=== PATIENT | male | born 1975 | race Two or more races ===

== ENCOUNTER 2020-05-01 19:24 | Inpatient (IN) | payer OTHER ==
[~2020-05-01] VITALS: Ht 177.8 cm; Wt 100.4 kg
[2020-05-01] MEDS ORDERED: OMNIPAQUE 350 MG/ML, 100ML BOTTLE ONE (19:30)
[2020-05-01 19:52] LABS: BASOPHILS % (AUTO) 1 % (0-1); EOSINOPHILS % (AUTO) 3 % (1-7); LYMPHOCYTES % (AUTO) 41 % (22-44); MEAN CORPUSCULAR HEMOGLOBIN 30.1 pg (27.5-34.5); MEAN CORPUSCULAR HGB CONC 33.8 g/dL (33.2-36.2); MEAN PLATELET VOLUME 9.9 fL (7.4-10.4); MONOCYTES % (AUTO) 9 % (2-9); NEUTROPHILS % (AUTO) 47 % (42-75); PLATELET COUNT 218 x10^3/uL (130-400); RED BLOOD COUNT 5.73 x10^6/uL (4.38-5.82); RED CELL DISTRIBUTION WIDTH 13.6 % (9.4-14.8)
[2020-05-01 20:00] LABS: INTERNATIONAL NORMALIZED RATIO 1.12 (0.93-1.1); MD NO; PROTHROMBIN TIME 11.9 Seconds (9.6-11.5)
--- NOTE | 2020-05-01 20:25 | NUR ---
PT BIB [facility] WITH C/O RIGHT FACE WEAKNESS SINCE 1744PM, PT A AND O X4 IN NAD, TALKATIVE WITH C/O BILAT CHEECK SENSITIVITY NO OTHER DEFICITS NOTED AT THIS TIME
--- NOTE | 2020-05-01 20:27 | NUR ---
NEURO ON TELE ROBOT PREFORMING ASSESSMENT AT THIS TIME WITH A CRYOCOM TRAVEL PT
--- NOTE | 2020-05-01 20:28 | NUR ---
DR FROST AT BEDSIDE NO TPA TO BE ORDERED
--- NOTE | 2020-05-01 20:58 | NUR ---
ZITA COMMUNICATION ENGINEER AT BEDSIDE FOR STAFF TO USE
--- NOTE | 2020-05-01 20:58 | NUR ---
REPORT FROM JEREMY YU
[2020-05-01] MEDS ORDERED: SODIUM CHLORIDE FLUSH 10ML SYR IVF PRN (21:30)
[2020-05-01] MEDS: PLEASE ENTER ALLERGIES MC SCH (22:00)
--- NOTE | 2020-05-01 22:00 | NUR ---
PT RESTING, NO NEEDS AT THIS TIME. AT BEDSIDE
--- NOTE | 2020-05-01 23:00 | NUR ---
REPORT GIVEN TO RACHEAL LUNA
[2020-05-01 23:38] VITALS: BP 132/82
[2020-05-02 00:03] VITALS: BP 132/82
[2020-05-02] MEDS ORDERED: TEMAZEPAM 15 MG CAPSULE PO PRN (01:30)
[2020-05-02] MEDS ORDERED: DOCUSATE 100 MG CAPSULE PO PRN (01:30)
[2020-05-02] MEDS ORDERED: HEPARIN 5,000 UNITS/ML, 1ML SQ SCH (01:30)
[2020-05-02] MEDS ORDERED: ACETAMINOPHEN 650 MG/20.3 ML UDC PO PRN (01:30)
[2020-05-02 05:26] LABS: CHOL/HDL RATIO 5.8; LDL/HDL RATIO 3.9 (0.5-3.0)
[2020-05-02] MEDS: PLEASE ENTER ALLERGIES MC SCH ×3 (05:48→21:23)
[2020-05-02] MEDS: ASPIRIN 81 MG TABLET CHEW PO/NG SCH (05:48)
[2020-05-02] MEDS: ATORVASTATIN 80 MG TABLET PO SCH ×2 (08:00→20:44)
[2020-05-02 08:05] VITALS: BP 112/73
[2020-05-02] MEDS: ENOXAPARIN 40 MG/0.4 ML SQ SCH (08:08)
[2020-05-02 13:08] VITALS: BP 115/79
[2020-05-02 19:40] VITALS: BP 108/70
[2020-05-03 01:12] VITALS: BP 99/70
[2020-05-03 05:54] LABS: ANION GAP 6 mmol/L (5-15); CALCIUM 8.9 mg/dL (8.5-10.1); CHLORIDE 106 mmol/L (98-107)
[2020-05-03] MEDS: PLEASE ENTER ALLERGIES MC SCH (06:00)
[2020-05-03] MEDS: ASPIRIN 81 MG TABLET CHEW PO/NG SCH (06:06)
[2020-05-03] MEDS ORDERED: ATOR20TA37 PO (07:07)
[2020-05-03] MEDS ORDERED: ASPI-515 PO/NG (07:07)
[2020-05-03] MEDS: ENOXAPARIN 40 MG/0.4 ML SQ SCH (08:08)
[2020-05-03 08:45] VITALS: BP 107/75
== END 2020-05-03 09:30 | disposition home or self-care (01) | DRG 66 ==
LOC: ED 21:14 → EDIP 21:41 → 5SO 23:26 → DCLOUNGE 05-03 09:16
PROVIDERS: ADMIT Internal Medicine; ATTEND Internal Medicine Infectious Disease
DX: I63.9 Cerebral infarction, unspecified (principal); R29.701 NIHSS score 1; F17.210 Nicotine dependence, cigarettes, uncomplicated; Z79.899 Other long term (current) drug therapy; Z79.82 Long term (current) use of aspirin; Z79.891 Long term (current) use of opiate analgesic
CPT/HCPCS: 36415; 70450; 70496; 70498; 70551; 80047; 80048; 80061; 83036; 84443; 85025; 85610; 85730; 93005; 93306; 96372; 99285; G0378; J1644; J1650; Q9967; 92523-GN

== ENCOUNTER 2020-05-07 02:26 | Emergency (ER) | payer OTHER ==
[~2020-05-07] VITALS: Ht 180.3 cm; Wt 95.0 kg
[~2020-05-07 02:26] MED LIST: ASPI-515 PO/NG; ATOR20TA37 PO
[2020-05-07] MEDS ORDERED: PROCHLORPERAZINE 5 MG/ML, 2ML IVPush ONE (02:30)
[2020-05-07] MEDS ORDERED: DIPHENHYDRAMINE 50 MG/ML, 1ML IVPush ONE (02:30)
[2020-05-07] MEDS ORDERED: SODIUM CHLORIDE FLUSH 10ML SYR IVF ONE (02:30)
[2020-05-07] MEDS ORDERED: KETOROLAC 30 MG/1 ML IVPush ONE (02:30)
[2020-05-07] MEDS ORDERED: SODIUM CHLORIDE 0.9% 1,000ML IVBOLUS ONE (02:30)
--- NOTE | 2020-05-07 02:38 | NUR ---
Pt BIB[facility] with complaints of being dizzy. Patient started new medication today. Was here on Saturday and was told her had a TIA. Patient stated that the dizzy spell was worse tonight then on Saturday. Per EMS patient ambulated witha steady gait [facility] Patient denies any pain. VSS. Placed on night monitor. Call light within reach
[2020-05-07] MEDS ORDERED: PROCHLORPERAZINE 5 MG/ML, 2ML ONE (02:40)
[2020-05-07] MEDS ORDERED: DIPHENHYDRAMINE 50 MG/ML, 1ML ONE (02:41)
[2020-05-07] MEDS ORDERED: KETOROLAC 30 MG/1 ML ONE (02:41)
[2020-05-07 02:51] LABS: BASOPHILS % (AUTO) 1 % (0-1); EOSINOPHILS % (AUTO) 4 % (1-7); LYMPHOCYTES % (AUTO) 35 % (22-44); MEAN CORPUSCULAR HEMOGLOBIN 29.9 pg (27.5-34.5); MEAN CORPUSCULAR HGB CONC 34.3 g/dL (33.2-36.2); MEAN PLATELET VOLUME 9.4 fL (7.4-10.4); MONOCYTES % (AUTO) 9 % (2-9); NEUTROPHILS % (AUTO) 52 % (42-75); PLATELET COUNT 197 x10^3/uL (130-400)
[2020-05-07 02:52] LABS: MD NO
[2020-05-07 02:59] LABS: ALANINE AMINOTRANSFERASE 38 U/L (12-78); ALBUMIN 3.6 g/dL (3.4-5.0); ANION GAP 6 mmol/L (5-15); CALCIUM 8.6 mg/dL (8.5-10.1); CHLORIDE 106 mmol/L (98-107); CREATININE 1.13 mg/dL (0.7-1.3)
[2020-05-07 03:01] LABS: ALKALINE PHOSPHATASE 97 U/L (45-117); BILIRUBIN,TOTAL 0.4 mg/dL (0.2-1.0); TOTAL PROTEIN 7.5 g/dL (6.4-8.2)
[2020-05-07 04:28] VITALS: BP 105/74
== END 2020-05-07 04:41 | disposition home or self-care (01) ==
LOC: ED 03:20
DX: R42 Dizziness and giddiness (principal); R51.9 Headache, unspecified; R94.31 Abnormal electrocardiogram [ECG] [EKG]; F17.210 Nicotine dependence, cigarettes, uncomplicated
CPT/HCPCS: 36415; 70450; 80053; 80320; 85025; 93005; 96361; 96374; 96375; 99285; J0780; J1200; J1885; J7030; G0480

== ENCOUNTER 2020-05-12 02:33 | Emergency (ER) | payer SELFPAY ==
[~2020-05-12] VITALS: Ht 172.7 cm; Wt 97.4 kg
[2020-05-12] MEDS ORDERED: MECLIZINE CHEWABLE 25 MG TAB ONE (03:09)
[2020-05-12 03:13] LABS: BASOPHILS % (AUTO) 1 % (0-1); EOSINOPHILS % (AUTO) 3 % (1-7); LYMPHOCYTES % (AUTO) 33 % (22-44); MEAN CORPUSCULAR HEMOGLOBIN 31.1 pg (27.5-34.5); MEAN PLATELET VOLUME 9.7 fL (7.4-10.4); MONOCYTES % (AUTO) 8 % (2-9); NEUTROPHILS % (AUTO) 56 % (42-75); PLATELET COUNT 208 x10^3/uL (130-400); RED BLOOD COUNT 5.56 x10^6/uL (4.38-5.82); RED CELL DISTRIBUTION WIDTH 12.9 % (9.4-14.8)
[2020-05-12 03:17] LABS: MD NO
[2020-05-12 03:21] LABS: ALBUMIN 3.9 g/dL (3.4-5.0); ANION GAP 5 mmol/L (5-15); CALCIUM 8.8 mg/dL (8.5-10.1); CHLORIDE 106 mmol/L (98-107); CREATININE 1.02 mg/dL (0.7-1.3)
[2020-05-12] MEDS ORDERED: MECLIZINE CHEWABLE 25 MG TAB PO ONE (03:30)
--- NOTE | 2020-05-12 04:06 | NUR ---
LATE ENTRY FOR INITIAL INTERACTION WITH PT: PT'S MAIN COMPLAINT IS DIZZINESS. PT HAS RIGHT SIDED FACIAL DROOP WHEN HE SMILES, ALL EXTREMITIES WITH EQUAL STRENGTH BILATERALLY. FACIAL DROOP SINCE 05/01 WHEN TIA OCCURED. PT THEN COMPLAINED OF CONSTIPATION. DENIES ABD PAIN, STATES HE IS STILL PASSING GAS. [employer].
[2020-05-12 04:19] VITALS: BP 113/76
== END 2020-05-12 04:28 | disposition home or self-care (01) ==
LOC: ED 04:00
DX: K59.00 Constipation, unspecified (principal); R42 Dizziness and giddiness; E78.00 Pure hypercholesterolemia, unspecified; F17.210 Nicotine dependence, cigarettes, uncomplicated; Z86.73 Personal history of transient ischemic attack (TIA), and cerebral infarction without residual deficits
CPT/HCPCS: 36415; 80048; 82040; 85025; 93005; 99284; 99406

== ENCOUNTER 2020-05-17 17:02 | Emergency (ER) | payer OTHER ==
[~2020-05-17] VITALS: Ht 172.7 cm; Wt 98.7 kg
--- NOTE | 2020-05-17 17:26 | NUR ---
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
[2020-05-17 17:37] LABS: BASOPHILS % (AUTO) 1 % (0-1); EOSINOPHILS % (AUTO) 3 % (1-7); LYMPHOCYTES % (AUTO) 32 % (22-44); MEAN CORPUSCULAR HEMOGLOBIN 29.9 pg (27.5-34.5); MEAN PLATELET VOLUME 10.1 fL (7.4-10.4); MONOCYTES % (AUTO) 16 % (2-9); NEUTROPHILS % (AUTO) 49 % (42-75); PLATELET COUNT 193 x10^3/uL (130-400); RED BLOOD COUNT 5.76 x10^6/uL (4.38-5.82); RED CELL DISTRIBUTION WIDTH 12.9 % (9.4-14.8)
[2020-05-17 17:44] LABS: MD NO
[2020-05-17 17:46] LABS: ALBUMIN 3.6 g/dL (3.4-5.0); ANION GAP 5 mmol/L (5-15); CALCIUM 8.7 mg/dL (8.5-10.1); CHLORIDE 104 mmol/L (98-107); CREATININE 1.09 mg/dL (0.7-1.3)
--- NOTE | 2020-05-17 17:57 | NUR ---
Pt here for c/o dizziness. States that his head feels "warm". Denies KRAMER, blurry vision. Recent DX of TIA.
[2020-05-17] MEDS ORDERED: MECLIZINE CHEWABLE 25 MG TAB PO ONE (18:30)
--- NOTE | 2020-05-17 19:06 | NUR ---
Report to JEREMY Osborn
[2020-05-17] MEDS ORDERED: MECLIZINE CHEWABLE 25 MG TAB ONE (19:16)
[2020-05-17] MEDS ORDERED: LORazepam 2 MG/ML, 1ML IVPush ONE (20:00)
[2020-05-17] MEDS ORDERED: LORazepam 2 MG/ML, 1ML ONE (20:00)
--- NOTE | 2020-05-17 20:20 | NUR ---
MRI CALLED SAYING PT WAS ANXIOUS IN MRI AND HAD TO STOP SCAN. PROVIDER NOTIFIED. PT MEDICATED PER EMAR WITH 1MG ATIVAN
[2020-05-17] MEDS ORDERED: GADOTERATE 10 MMOL/20 ML VIAL ONE (20:25)
--- NOTE | 2020-05-17 23:24 | NUR ---
PT SLEEPING IN BED, PT AT BED SIDE PT ON MONITOR WITH PT VSS. PT AWAITING MRI READ.
[2020-05-18 01:27] VITALS: BP 112/80
== END 2020-05-18 01:29 | disposition home or self-care (01) ==
LOC: ED 18:47
DX: R42 Dizziness and giddiness (principal); R51.9 Headache, unspecified; Z86.73 Personal history of transient ischemic attack (TIA), and cerebral infarction without residual deficits
CPT/HCPCS: 36415; 70450; 70553; 80048; 82040; 85025; 93005; 93880; 96374; 99285; A9575; J2060

== ENCOUNTER 2020-05-29 00:03 | Emergency (ER) | payer OTHER ==
[~2020-05-29] VITALS: Ht 170.2 cm; Wt 91.2 kg
[2020-05-29] MEDS ORDERED: LORazepam 1MG TABLET PO ONE (00:30)
[2020-05-29] MEDS ORDERED: ASPIRIN 325 MG TABLET PO ONE (00:30)
[2020-05-29] MEDS ORDERED: LORazepam 1MG TABLET ONE (00:39)
[2020-05-29] MEDS ORDERED: ASPIRIN 325 MG TABLET ONE (00:40)
[2020-05-29 00:54] LABS: BASOPHILS % (AUTO) 1 % (0-1); EOSINOPHILS % (AUTO) 3 % (1-7); LYMPHOCYTES % (AUTO) 37 % (22-44); MD NO; MEAN CORPUSCULAR HEMOGLOBIN 29.8 pg (27.5-34.5); MEAN CORPUSCULAR HGB CONC 34.2 g/dL (33.2-36.2); MEAN PLATELET VOLUME 9.7 fL (7.4-10.4); MONOCYTES % (AUTO) 8 % (2-9); NEUTROPHILS % (AUTO) 52 % (42-75); PLATELET COUNT 190 x10^3/uL (130-400); RED BLOOD COUNT 5.42 x10^6/uL (4.38-5.82); RED CELL DISTRIBUTION WIDTH 12.9 % (9.4-14.8)
--- NOTE | 2020-05-29 00:56 | NUR ---
pt with complaints of left sided headache that radiates down left side of face, neck, and chest. started earlier today but has been seen here recently for similar symptoms.
[2020-05-29 01:04] LABS: ALBUMIN 3.6 g/dL (3.4-5.0); ANION GAP 5 mmol/L (5-15); CALCIUM 8.9 mg/dL (8.5-10.1); CHLORIDE 107 mmol/L (98-107)
[2020-05-29 01:09] LABS: CREATININE 1.08 mg/dL (0.7-1.3)
[2020-05-29 01:10] LABS: TROPONIN I < 0.015 ng/mL (0.000-0.045)
[2020-05-29] MEDS ORDERED: ACETAMINOPHEN 500 MG TABLET PO ONE (02:30)
[2020-05-29] MEDS ORDERED: ACETAMINOPHEN 500 MG TABLET ONE (02:36)
[2020-05-29 02:38] VITALS: BP 109/74
== END 2020-05-29 02:44 | disposition home or self-care (01) ==
LOC: ED 01:04
DX: R07.89 Other chest pain (principal); R42 Dizziness and giddiness; G44.209 Tension-type headache, unspecified, not intractable; F41.1 Generalized anxiety disorder; E78.5 Hyperlipidemia, unspecified; E78.00 Pure hypercholesterolemia, unspecified; Z86.73 Personal history of transient ischemic attack (TIA), and cerebral infarction without residual deficits; Z87.891 Personal history of nicotine dependence
CPT/HCPCS: 36415; 71045; 80048; 82040; 84484; 85025; 93005; 99285

== ENCOUNTER 2020-06-26 18:09 | Emergency (ER) | payer MEDICAID ==
[~2020-06-26] VITALS: Ht 177.8 cm; Wt 98.6 kg
[2020-06-26] MEDS ORDERED: ASPIRIN 81 MG TABLET CHEW PO ONE (18:30)
[2020-06-26] MEDS ORDERED: SODIUM CHLORIDE FLUSH 10ML SYR IVF ONE (18:30)
[2020-06-26 18:56] LABS: BASOPHILS % (AUTO) 1 % (0-1); EOSINOPHILS % (AUTO) 3 % (1-7); LYMPHOCYTES % (AUTO) 33 % (22-44); MD NO; MEAN CORPUSCULAR HEMOGLOBIN 29.8 pg (27.5-34.5); MEAN CORPUSCULAR HGB CONC 34.4 g/dL (33.2-36.2); MEAN PLATELET VOLUME 9.1 fL (7.4-10.4); MONOCYTES % (AUTO) 8 % (2-9); NEUTROPHILS % (AUTO) 56 % (42-75); PLATELET COUNT 212 x10^3/uL (130-400); RED BLOOD COUNT 5.47 x10^6/uL (4.38-5.82); RED CELL DISTRIBUTION WIDTH 13.2 % (9.4-14.8)
[2020-06-26] MEDS ORDERED: ASPIRIN 81 MG TABLET CHEW ONE (18:58)
[2020-06-26 19:08] LABS: ALANINE AMINOTRANSFERASE 71 U/L (12-78); ALBUMIN 3.6 g/dL (3.4-5.0); ANION GAP 7 mmol/L (5-15); CALCIUM 8.5 mg/dL (8.5-10.1); CHLORIDE 108 mmol/L (98-107); CREATININE 1.19 mg/dL (0.7-1.3)
[2020-06-26 19:12] LABS: ALKALINE PHOSPHATASE 89 U/L (45-117); BILIRUBIN,TOTAL 0.5 mg/dL (0.2-1.0); TOTAL PROTEIN 7.3 g/dL (6.4-8.2); TROPONIN I < 0.015 ng/mL (0.000-0.045)
--- NOTE | 2020-06-26 19:20 | NUR ---
ERMD AT BEDSIDE FOR EVALUATION.
[2020-06-26] MEDS ORDERED: MAALOX/HYOSCYAMINE/LIDOCAINE 45 ML BTL PO ONE (19:30)
[2020-06-26] MEDS ORDERED: MAALOX/HYOSCYAMINE/LIDOCAINE 45 ML BTL ONE (20:07)
--- NOTE | 2020-06-26 20:37 | NUR ---
PATIENT SITTING IN [employer] [facility] VSS, DAUGHTER AT BEDSIDE, WAITING FOR ERMD DISPO.
[2020-06-26 21:02] VITALS: BP 119/92
--- NOTE | 2020-06-26 21:06 | NUR ---
Patient given discharge instructions and prescriptions and they have confirmed that they understand the instructions, with daughter translating. Patient stable and ambulatory with steady gait from ED with daughter to private vehicle.
== END 2020-06-26 21:07 | disposition home or self-care (01) ==
LOC: ED 19:03
DX: R42 Dizziness and giddiness (principal); K21.9 Gastro-esophageal reflux disease without esophagitis; F17.210 Nicotine dependence, cigarettes, uncomplicated; R06.02 Shortness of breath; R00.2 Palpitations; E78.00 Pure hypercholesterolemia, unspecified; Z86.73 Personal history of transient ischemic attack (TIA), and cerebral infarction without residual deficits; Z86.718 Personal history of other venous thrombosis and embolism
CPT/HCPCS: 36415; 71045; 80053; 83690; 84484; 85025; 93005; 99285; 99406

== ENCOUNTER 2020-10-10 20:51 | Emergency (ER) | payer MEDICAID ==
[~2020-10-10] VITALS: Ht 170.2 cm; Wt 105.3 kg
[~2020-10-10 20:51] MED LIST changes: -ASPI-515 PO/NG; +ASPI-963 PO/NG
[2020-10-10 21:45] VITALS: BP 113/76
[2020-10-10] MEDS ORDERED: BICILLIN-LA 1,200,000 UNITS/2 ML IM ONE (23:00)
[2020-10-10] MEDS ORDERED: DEXAMETHASONE 4 MG TABLET PO ONE (23:00)
[2020-10-10] MEDS ORDERED: DEXAMETHASONE 4 MG/ML, 1ML ONE (23:21)
[2020-10-10] MEDS ORDERED: DEXAMETHASONE 4 MG TABLET ONE (23:22)
== END 2020-10-10 23:37 | disposition home or self-care (01) ==
LOC: ED 23:10
DX: J02.0 Streptococcal pharyngitis (principal); R50.9 Fever, unspecified; R51.9 Headache, unspecified; E78.00 Pure hypercholesterolemia, unspecified; K21.9 Gastro-esophageal reflux disease without esophagitis; F17.200 Nicotine dependence, unspecified, uncomplicated; Z86.73 Personal history of transient ischemic attack (TIA), and cerebral infarction without residual deficits
CPT/HCPCS: 87081; 87880; 96372; 99283; J0561